=== PATIENT | male | born 1970 | race Caucasian/White ===

== ENCOUNTER → 2019-07-12 | Outpatient (CLI) | payer MEDICARE ==
[2019-07-13 06:05] LABS: TOTAL PROTEIN, SERUM 7.1 g/dL (6.0-8.5)
[2019-07-13 15:03] LABS: A/G RATIO 1.3 (0.7-1.7); ALPHA-1-GLOBULIN 0.3 g/dL (0.0-0.4); ALPHA-2-GLOBULIN 0.7 g/dL (0.4-1.0); BETA GLOBULIN 1.2 g/dL (0.7-1.3); GLOBULIN, TOTAL 3.1 g/dL (2.2-3.9); M-SPIKE Not Observed g/dL (Not Observed)
== END | disposition home or self-care (01) ==
LOC: LAB 15:48
PROVIDERS: Psychiatry & Neurology Neurology
DX: G60.9 Hereditary and idiopathic neuropathy, unspecified (principal); E53.8 Deficiency of other specified B group vitamins